=== PATIENT | male | born 1965 | race Caucasian/White ===

== ENCOUNTER 2017-06-14 15:31 | Outpatient (CLI) | payer OTHER ==
[~2017-06-14 15:31] MED LIST: ALLO300T8 PO; AMLO2.5T2 PO; APIX5TAB3 PO; ASPI81TA52 PO; DIO160T PO; FENO145T38 PO; TRIA1TAB5 PO
[2017-06-14] MEDS ORDERED: iohexol 300mg/ml 100ml inj. ONE (15:46)
[2017-06-14] MEDS ORDERED: iohexol 350MG/ML 100ml bottle IV ONE (16:06)
== END 2017-06-14 23:59 | disposition home or self-care (01) ==
LOC: 64 CT 15:31
PROVIDERS: ATTEND Internal Medicine Hematology & Oncology
DX: I37.8 Other nonrheumatic pulmonary valve disorders (principal); I26.99 Other pulmonary embolism without acute cor pulmonale; I10 Essential (primary) hypertension
CPT/HCPCS: 71275; Q9967

== ENCOUNTER 2017-12-05 14:15 | Outpatient (CLI) | payer OTHER ==
[2017-12-05 15:20] LABS: ALANINE AMINOTRANSFERASE 39 U/L (12-78); ALBUMIN 3.9 G/DL (3.4-5.0); ALKALINE PHOSPHATASE 57 IU/L (46-116); ANION GAP 11 (8-16); ASPARTATE AMINO TRANSFERASE 25 U/L (10-37); BILIRUBIN,TOTAL 0.6 MG/DL (0.1-1.0); BLOOD UREA NITROGEN 20 MG/DL (7-18); BUN/CREATININE RATIO 18.3 (5.4-32.0); CALCIUM 9.2 MG/DL (8.5-10.1); CHLORIDE 101 MMOL/L (99-107); CHOL/HDL RATIO 5.7 (0.00-4.99); CHOLESTEROL 194 MG/DL (0-200); CREATININE 1.09 MG/DL (0.60-1.10); GLUCOSE 103 MG/DL (70-104); HDL CHOLESTEROL 34 MG/DL (35-60); LDL CHOLESTEROL 134 MG/DL (50-100); POTASSIUM 3.4 MMOL/L (3.5-5.1); SODIUM 140 MMOL/L (135-145); TOTAL CARBON DIOXIDE 28.1 MMOL/L (24-32); TOTAL PROTEIN 7.8 G/DL (6.4-8.2); TRIGLYCERIDES 220 MG/DL (20-135); eGFR 71 ML/MIN
== END 2017-12-05 23:59 | disposition home or self-care (01) ==
LOC: LAB 14:15
DX: Z12.5 Encounter for screening for malignant neoplasm of prostate (principal); E78.5 Hyperlipidemia, unspecified; I10 Essential (primary) hypertension; Z87.891 Personal history of nicotine dependence
CPT/HCPCS: 36415; 80053; 80061; 84153

== ENCOUNTER 2018-03-13 09:13 | Outpatient (CLI) | payer OTHER ==
[2018-03-13 10:07] LABS: ALANINE AMINOTRANSFERASE 34 U/L (12-78); ALBUMIN 3.6 G/DL (3.4-5.0); ALKALINE PHOSPHATASE 58 IU/L (46-116); ANION GAP 8 (8-16); ASPARTATE AMINO TRANSFERASE 20 U/L (10-37); BILIRUBIN,TOTAL 0.5 MG/DL (0.1-1.0); BLOOD UREA NITROGEN 18 MG/DL (7-18); BUN/CREATININE RATIO 18.2 (5.4-32.0); CALCIUM 9.2 MG/DL (8.5-10.1); CHLORIDE 102 MMOL/L (99-107); CHOL/HDL RATIO 5.2 (0.00-4.99); CHOLESTEROL 192 MG/DL (0-200); CREATININE 0.99 MG/DL (0.60-1.10); GLUCOSE 111 MG/DL (70-104); HDL CHOLESTEROL 37 MG/DL (35-60); LDL CHOLESTEROL 135 MG/DL (50-100); POTASSIUM 3.6 MMOL/L (3.5-5.1); SODIUM 140 MMOL/L (135-145); TOTAL CARBON DIOXIDE 30.1 MMOL/L (24-32); TOTAL PROTEIN 7.3 G/DL (6.4-8.2); TRIGLYCERIDES 205 MG/DL (20-135); eGFR 79 ML/MIN
== END 2018-03-13 23:59 | disposition home or self-care (01) ==
LOC: LAB 09:13
PROVIDERS: ATTEND Family Medicine
DX: Z12.5 Encounter for screening for malignant neoplasm of prostate (principal); E78.00 Pure hypercholesterolemia, unspecified; I10 Essential (primary) hypertension; Z87.891 Personal history of nicotine dependence
CPT/HCPCS: 36415; 80053; 80061; 84153

== ENCOUNTER 2018-09-24 12:53 | Outpatient (CLI) | payer OTHER ==
[2018-09-24 14:46] LABS: ALANINE AMINOTRANSFERASE 35 U/L (12-78); ALBUMIN 3.8 G/DL (3.4-5.0); ALBUMIN/GLOBULIN RATIO 1.1 (1.1-1.5); ALKALINE PHOSPHATASE 57 IU/L (46-116); ANION GAP 8 (8-16); ASPARTATE AMINO TRANSFERASE 18 U/L (10-37); BILIRUBIN,TOTAL 0.5 MG/DL (0.1-1.0); BLOOD UREA NITROGEN 17 MG/DL (7-18); BUN/CREATININE RATIO 17.7 (5.4-32.0); CHLORIDE 103 MMOL/L (99-107); CHOLESTEROL 192 MG/DL (0-200); CREATININE 0.96 MG/DL (0.60-1.10); GLUCOSE 101 MG/DL (70-104); HDL CHOLESTEROL 32 MG/DL (35-60); LDL CHOLESTEROL 134 MG/DL (50-100); POTASSIUM 3.5 MMOL/L (3.5-5.1); SODIUM 139 MMOL/L (135-145); TOTAL CARBON DIOXIDE 28.2 MMOL/L (24-32); TOTAL PROTEIN 7.4 G/DL (6.4-8.2); TRIGLYCERIDES 175 MG/DL (20-135); eGFR 82 ML/MIN
[2018-09-24 15:01] LABS: BASOPHILS # (AUTO) 0.1 X10'3 (0-0.2); HEMOGLOBIN 14.2 g/dl (14.0-17.9); MONOCYTES # (AUTO) 0.6 X10'3 (0-0.9); NEUTROPHILS # (AUTO) 8.9 X10'3 (1.8-7.7)
[2018-09-24 15:03] LABS: BASOPHILS % (AUTO) 0.8 % (0-1); EOSINOPHILS # (AUTO) 0.5 X10'3 (0-0.9); EOSINOPHILS % (AUTO) 4.2 % (0-6); HEMATOCRIT 43.8 % (42.0-52.0); LYMPHOCYTES # (AUTO) 2.2 X10'3 (1.1-4.8); LYMPHOCYTES % (AUTO) 17.7 % (21-51); MEAN CORPUSCULAR HEMOGLOBIN 28.9 PG (27.0-31.0); MEAN CORPUSCULAR HGB CONC 32.5 g/dL (33.0-36.5); MEAN PLATELET VOLUME 8.5 FL (7.4-10.4); MONOCYTES % (AUTO) 4.8 % (2-12); NEUTROPHILS % (AUTO) 72.5 % (42-75); RED BLOOD COUNT 4.92 X10'6 (4.70-6.10); RED CELL DISTRIBUTION WIDTH 16.6 % (11.5-14.5); WHITE BLOOD COUNT 12.3 X10'3 (4.5-11.0)
[2018-09-24 15:09] LABS: PLATELET COUNT 299 X10'3 (140-440)
== END 2018-09-24 23:59 | disposition home or self-care (01) ==
LOC: LAB 12:53
PROVIDERS: ATTEND Family Medicine
DX: I10 Essential (primary) hypertension (principal); E78.00 Pure hypercholesterolemia, unspecified; Z87.891 Personal history of nicotine dependence
CPT/HCPCS: 36415; 80053; 80061; 85025

== ENCOUNTER 2019-01-06 13:38 | Outpatient (CLI) | payer OTHER | END 2019-01-06 23:59 | disposition home or self-care (01) | LOC: RAD 13:38 | PROVIDERS: ATTEND Family Medicine | DX: M17.11 Unilateral primary osteoarthritis, right knee (principal) | CPT/HCPCS: 73564 ==

== ENCOUNTER 2019-06-02 09:06 | Outpatient (CLI) | payer OTHER ==
[2019-06-02 10:09] LABS: ALANINE AMINOTRANSFERASE 37 U/L (12-78); ALBUMIN 3.8 G/DL (3.4-5.0); ALBUMIN/GLOBULIN RATIO 1.1 (1.1-1.5); ALKALINE PHOSPHATASE 48 IU/L (46-116); ANION GAP 12 (8-16); ASPARTATE AMINO TRANSFERASE 22 U/L (10-37); BILIRUBIN,TOTAL 0.6 MG/DL (0.1-1.0); BLOOD UREA NITROGEN 17 MG/DL (7-18); BUN/CREATININE RATIO 16.3 (5.4-32.0); CALCIUM 9.1 MG/DL (8.5-10.1); CHLORIDE 103 MMOL/L (99-107); CHOL/HDL RATIO 5.4 (0.00-4.99); CHOLESTEROL 184 MG/DL (0-200); CREATININE 1.04 MG/DL (0.60-1.10); GLUCOSE 120 MG/DL (70-104); HDL CHOLESTEROL 34 MG/DL (35-60); LDL CHOLESTEROL 131 MG/DL (50-100); POTASSIUM 3.7 MMOL/L (3.5-5.1); SODIUM 140 MMOL/L (135-145); TOTAL CARBON DIOXIDE 25.3 MMOL/L (24-32); TOTAL PROTEIN 7.4 G/DL (6.4-8.2); TRIGLYCERIDES 164 MG/DL (20-135); eGFR 74 ML/MIN
== END 2019-06-02 23:59 | disposition home or self-care (01) ==
LOC: LAB 09:06
PROVIDERS: ATTEND Family Medicine
DX: Z12.5 Encounter for screening for malignant neoplasm of prostate (principal); E78.00 Pure hypercholesterolemia, unspecified; I10 Essential (primary) hypertension
CPT/HCPCS: 36415; 80053; 80061; 84153

== ENCOUNTER 2019-08-20 12:56 | Inpatient (IN) | payer OTHER ==
[~2019-08-20] VITALS: Ht 190.5 cm; Wt 186.0 kg
[2019-08-20 13:58] LABS: BASOPHILS # (AUTO) 0.1 X10'3 (0-0.2); BASOPHILS % (AUTO) 0.5 % (0-1); EOSINOPHILS % (AUTO) 0.2 % (0-6); HEMATOCRIT 43.5 % (42.0-52.0); HEMOGLOBIN 14.9 g/dl (14.0-17.9); LYMPHOCYTES # (AUTO) 1.1 X10'3 (1.1-4.8); LYMPHOCYTES % (AUTO) 9.7 % (21-51); MEAN CORPUSCULAR HEMOGLOBIN 30.3 PG (27.0-31.0); MEAN CORPUSCULAR HGB CONC 34.2 g/dL (33.0-36.5); MEAN CORPUSCULAR VOLUME 88.7 FL (78-98); MEAN PLATELET VOLUME 8.5 FL (7.4-10.4); MONOCYTES # (AUTO) 1.1 X10'3 (0-0.9); NEUTROPHILS # (AUTO) 8.8 X10'3 (1.8-7.7); NEUTROPHILS % (AUTO) 79.6 % (42-75); PLATELET COUNT 288 X10'3 (140-440); RED BLOOD COUNT 4.91 X10'6 (4.70-6.10); RED CELL DISTRIBUTION WIDTH 15.8 % (11.5-14.5)
[2019-08-20] MEDS ORDERED: albuterol 2.5 MG/3 ML nebule NEB ONE (14:10)
[2019-08-20 14:12] LABS: ALANINE AMINOTRANSFERASE 29 U/L (12-78); ALBUMIN 3.8 G/DL (3.4-5.0); ALKALINE PHOSPHATASE 39 IU/L (46-116); ANION GAP 16 (8-16); ASPARTATE AMINO TRANSFERASE 31 U/L (10-37); BILIRUBIN,TOTAL 0.8 MG/DL (0.1-1.0); BLOOD UREA NITROGEN 36 MG/DL (7-18); CALCIUM 9.2 MG/DL (8.5-10.1); CHLORIDE 103 MMOL/L (99-107); CREATININE 2.25 MG/DL (0.60-1.10); GLUCOSE 157 MG/DL (70-104); POTASSIUM 3.6 MMOL/L (3.5-5.1); SODIUM 141 MMOL/L (135-145); TOTAL CARBON DIOXIDE 22.3 MMOL/L (24-32); TOTAL PROTEIN 7.8 G/DL (6.4-8.2); eGFR 31 ML/MIN
[2019-08-20] MEDS ORDERED: normal saline 1000ML IV soln IVB ONE (14:15)
[2019-08-20] MEDS ORDERED: heparin 25,000 UNIT/250ml bag 250 ML IV SCH (15:00)
[2019-08-20] MEDS ORDERED: heparin 10,000 units/1 ML INJ IV ONE (15:00)
[2019-08-20] MEDS ORDERED: OLME40TA13 PO (15:41)
[2019-08-20] MEDS ORDERED: FLUT16SP11 BOTHNARES (15:41)
[2019-08-20 16:08] LABS: D-DIMER 2.71 MG/L FEU (0-0.50)
[2019-08-20] MEDS ORDERED: potassium Cl 20 mEq SR tablet PO PRN (16:55)
[2019-08-20] MEDS ORDERED: morphine 2 MG/ML inj. syringe IV PRN (16:55)
[2019-08-20] MEDS ORDERED: acetaminophen 325mg tablet PO PRN ×2 (16:55)
[2019-08-20] MEDS ORDERED: ondansetron/PF 4mg/2ml inj IV PRN (16:55)
[2019-08-20] MEDS ORDERED: magnesium 4gm in 100ml NS 100 ML IV PRN (16:55)
[2019-08-20] MEDS ORDERED: magnesium 2GM in 50ml NS 50 ML IV PRN (16:55)
[2019-08-20] MEDS ORDERED: HYDROcodone/acetaminophen 5mg/325mg tablet PO PRN (16:55)
[2019-08-20] MEDS ORDERED: potassium CL 10mEq/100ml bag 100 ML IV PRN ×2 (16:55)
[2019-08-20] MEDS ORDERED: magnesium Cl slow-release 64mg tablet PO PRN (16:55)
[2019-08-20 19:00] VITALS: BP 142/95
--- NOTE | 2019-08-20 19:08 | NUR ---
Patient on the floor from ER. SOB, on 5 liter O2 NC. Not complaining of any pain at this time.
[2019-08-20] MEDS: K and/or MAG REPLACEMENT MC SCH (20:00)
[2019-08-20] MEDS ORDERED: CefTRIAXone 2gm/D5W 50ml 50 ML IV ONE (20:20)
[2019-08-20] MEDS: normal saline 1000ml 1,000 ML IV SCH (21:14)
[2019-08-20] MEDS: docusate sod 100mg capsule PO SCH (21:14)
[2019-08-20 22:00] VITALS: BP 133/87
--- NOTE | 2019-08-20 22:16 | NUR ---
Patient's troponin was 1.02. Dr. Saleem in our unit at the moment. He acknowledged the troponin level being 1.02. No orders were given at this time.
[2019-08-20] MEDS: heparin 10,000 units/1 ML INJ IV PRN (22:29)
[2019-08-20] MEDS: heparin 25,000 UNIT/250ml bag 250 ML IV SCH (22:37)
[2019-08-20 23:20] VITALS: BP_SYST 133; BP_SYST 137; BP_SYST 148; BP_DIAS 87; BP_DIAS 90; BP_DIAS 98
[2019-08-21] VITALS (7 sets, daily range): BP systolic 100–134; BP diastolic 56–89
[2019-08-21 02:34] LABS: CLARITY,URINE CLEAR (Clear); COLOR,URINE YELLOW (Yellow); GLUCOSE, URINE NEGATIVE (Neg); KETONES,URINE NEGATIVE (Neg); LEUKOCYTE ESTERASE ,URINE NEGATIVE (Neg); NITRITES, URINE NEGATIVE (Neg); OCCULT BLOOD,URINE LARGE (Neg); PH,URINE 5.5 (4.8-8.0); PROTEIN,URINE TRACE mg/dl (Neg)
[2019-08-21 02:40] LABS: UA COLLECTION TYPE VOIDED
[2019-08-21 02:43] LABS: WBC,URINE 0-4 /HPF (0-4)
[2019-08-21 02:44] LABS: BACTERIA,URINE NONE SEEN /HPF (Neg); SQUAMOUS EPITHELIAL CELL,UR MODERATE /LPF (FEW)
[2019-08-21 02:47] LABS: URINE AMPHETAMINE SCREEN NEGATIVE (Neg); URINE BARBITUATE SCREEN NEGATIVE (Neg); URINE BENZODIAZEPINES SCREEN NEGATIVE (Neg); URINE CANNABINOID SCREEN NEGATIVE (Neg); URINE COCAINE SCREEN NEGATIVE (Neg); URINE METHADONE SCREEN NEGATIVE (Neg); URINE OPIATE SCREEN NEGATIVE (Neg); URINE PHENCYCLIDINE SCREEN NEGATIVE (Neg)
[2019-08-21] MEDS: normal saline 1000ml 1,000 ML IV SCH ×3 (02:55→20:25)
[2019-08-21 03:24] LABS: BASOPHILS # (AUTO) 0.1 X10'3 (0-0.2); BASOPHILS % (AUTO) 0.7 % (0-1); EOSINOPHILS # (AUTO) 0.1 X10'3 (0-0.9); EOSINOPHILS % (AUTO) 0.6 % (0-6); HEMATOCRIT 39.8 % (42.0-52.0); HEMOGLOBIN 13.8 g/dl (14.0-17.9); LYMPHOCYTES # (AUTO) 1.6 X10'3 (1.1-4.8); LYMPHOCYTES % (AUTO) 15.4 % (21-51); MEAN CORPUSCULAR HEMOGLOBIN 30.8 PG (27.0-31.0); MEAN CORPUSCULAR HGB CONC 34.7 g/dL (33.0-36.5); MEAN CORPUSCULAR VOLUME 88.8 FL (78-98); MEAN PLATELET VOLUME 8.4 FL (7.4-10.4); MONOCYTES # (AUTO) 0.9 X10'3 (0-0.9); MONOCYTES % (AUTO) 8.3 % (2-12); NEUTROPHILS # (AUTO) 7.7 X10'3 (1.8-7.7); PLATELET COUNT 268 X10'3 (140-440); RED BLOOD COUNT 4.48 X10'6 (4.70-6.10); WHITE BLOOD COUNT 10.2 X10'3 (4.5-11.0)
[2019-08-21 03:37] LABS: ALANINE AMINOTRANSFERASE 29 U/L (12-78); ALBUMIN 3.3 G/DL (3.4-5.0); ALBUMIN/GLOBULIN RATIO 0.9 (1.1-1.5); ALKALINE PHOSPHATASE 34 IU/L (46-116); ANION GAP 15 (8-16); ASPARTATE AMINO TRANSFERASE 28 U/L (10-37); BILIRUBIN,TOTAL 0.7 MG/DL (0.1-1.0); BLOOD UREA NITROGEN 41 MG/DL (7-18); BUN/CREATININE RATIO 22.2 (5.4-32.0); CALCIUM 8.3 MG/DL (8.5-10.1); CHLORIDE 104 MMOL/L (99-107); CREATININE 1.85 MG/DL (0.60-1.10); GLUCOSE 158 MG/DL (70-104); POTASSIUM 3.3 MMOL/L (3.5-5.1); SODIUM 140 MMOL/L (135-145); TOTAL CARBON DIOXIDE 21.3 MMOL/L (24-32); TOTAL PROTEIN 6.9 G/DL (6.4-8.2); eGFR 38 ML/MIN
[2019-08-21 03:39] LABS: CHOL/HDL RATIO 5.6 (0.00-4.99); CHOLESTEROL 135 MG/DL (0-200); HDL CHOLESTEROL 24 MG/DL (35-60); LDL CHOLESTEROL 91 MG/DL (50-100); MAGNESIUM 1.9 MG/DL (1.5-2.4); TRIGLYCERIDES 168 MG/DL (20-135)
[2019-08-21] MEDS: heparin 25,000 UNIT/250ml bag 250 ML IV SCH ×2 (04:11→06:58)
--- NOTE | 2019-08-21 04:25 | NUR ---
The 12hr troponin is 0.72. Its trending down. Charge Nurse-Courtaney is aware of the result. No need to call the Dr. with troponin trending down.
--- NOTE | 2019-08-21 05:14 | NUR ---
The patient has a DVT PTT due at 0430. He is a hard stick. Waiting for the lab to draw the lab. Charge Nurse-Rhiannon is aware of the issue
--- NOTE | 2019-08-21 06:00 | NUR ---
I have received report from Gary ALVAREZ and had the opportunity to ask questions and assume patient care.
--- NOTE | 2019-08-21 06:21 | NUR ---
Problems reprioritized. Patient report given [place], questions answered & plan of care reviewed with .
[2019-08-21] MEDS: heparin 10,000 units/1 ML INJ IV PRN (06:58)
[2019-08-21] MEDS: losartan 50mg tablet PO SCH (07:05)
[2019-08-21] MEDS: fenofibrate 145mg tablet PO SCH (07:05)
[2019-08-21] MEDS: allopurinol 300 MG tablet PO SCH (07:05)
[2019-08-21] MEDS: amLODIPine 2.5mg tablet PO SCH (07:05)
[2019-08-21] MEDS: docusate sod 100mg capsule PO SCH ×2 (07:40→20:00)
[2019-08-21] MEDS: fluticasone nasal spray 16GM bottle NS SCH (07:40)
[2019-08-21] MEDS: potassium Cl 20 mEq SR tablet PO PRN ×3 (07:44→20:19)
[2019-08-21] MEDS: K and/or MAG REPLACEMENT MC SCH ×2 (08:00→20:00)
[2019-08-21] MEDS: furosemide 40mg/4ml inj IV SCH ×2 (09:51→20:19)
[2019-08-21] MEDS: apixaban 5mg tablet PO SCH ×2 (09:51→20:19)
--- NOTE | 2019-08-21 18:00 | NUR ---
Patient in room MED 315. I have received report from [place], and had the opportunity to ask questions and assume patient care.
--- NOTE | 2019-08-21 18:10 | NUR ---
Problems reprioritized. Patient report given, questions answered & plan of care reviewed with Gary ALVAREZ.
[2019-08-22] VITALS (7 sets, daily range): BP systolic 107–187; BP diastolic 60–98
[2019-08-22 06:24] LABS: BASOPHILS % (AUTO) 0.5 % (0-1); EOSINOPHILS # (AUTO) 0.1 X10'3 (0-0.9); EOSINOPHILS % (AUTO) 1.6 % (0-6); HEMATOCRIT 41.5 % (42.0-52.0); HEMOGLOBIN 14.3 g/dl (14.0-17.9); LYMPHOCYTES # (AUTO) 2.7 X10'3 (1.1-4.8); LYMPHOCYTES % (AUTO) 30.6 % (21-51); MEAN CORPUSCULAR HEMOGLOBIN 30.7 PG (27.0-31.0); MEAN CORPUSCULAR HGB CONC 34.4 g/dL (33.0-36.5); MEAN CORPUSCULAR VOLUME 89.2 FL (78-98); MEAN PLATELET VOLUME 8.7 FL (7.4-10.4); MONOCYTES # (AUTO) 0.8 X10'3 (0-0.9); MONOCYTES % (AUTO) 9.5 % (2-12); NEUTROPHILS # (AUTO) 5.1 X10'3 (1.8-7.7); NEUTROPHILS % (AUTO) 57.8 % (42-75); PLATELET COUNT 307 X10'3 (140-440); RED BLOOD COUNT 4.65 X10'6 (4.70-6.10); RED CELL DISTRIBUTION WIDTH 15.8 % (11.5-14.5); WHITE BLOOD COUNT 8.8 X10'3 (4.5-11.0)
--- NOTE | 2019-08-22 06:25 | NUR ---
Problems reprioritized. Patient report given to Kurtis, questions answered & plan of care reviewed with .
[2019-08-22 06:28] LABS: ALANINE AMINOTRANSFERASE 39 U/L (12-78); ALBUMIN 3.6 G/DL (3.4-5.0); ALBUMIN/GLOBULIN RATIO 0.9 (1.1-1.5); ALKALINE PHOSPHATASE 43 IU/L (46-116); ANION GAP 12 (8-16); ASPARTATE AMINO TRANSFERASE 28 U/L (10-37); BILIRUBIN,TOTAL 0.6 MG/DL (0.1-1.0); BLOOD UREA NITROGEN 47 MG/DL (7-18); BUN/CREATININE RATIO 27.5 (5.4-32.0); CALCIUM 8.6 MG/DL (8.5-10.1); CHLORIDE 102 MMOL/L (99-107); CREATININE 1.71 MG/DL (0.60-1.10); GLUCOSE 122 MG/DL (70-104); POTASSIUM 3.4 MMOL/L (3.5-5.1); SODIUM 141 MMOL/L (135-145); TOTAL CARBON DIOXIDE 27.1 MMOL/L (24-32); TOTAL PROTEIN 7.6 G/DL (6.4-8.2); eGFR 42 ML/MIN
--- NOTE | 2019-08-22 06:41 | NUR ---
Patient in room MED 317. I have received report from Gary ALVAREZ and had the opportunity to ask questions and assume patient care.
[2019-08-22] MEDS: docusate sod 100mg capsule PO SCH ×2 (08:00→20:00)
[2019-08-22] MEDS: amLODIPine 2.5mg tablet PO SCH (08:31)
[2019-08-22] MEDS: apixaban 5mg tablet PO SCH ×2 (08:31→21:27)
[2019-08-22] MEDS: fenofibrate 145mg tablet PO SCH (08:31)
[2019-08-22] MEDS: losartan 50mg tablet PO SCH (08:31)
[2019-08-22] MEDS: potassium Cl 20 mEq SR tablet PO PRN ×3 (08:32→17:31)
[2019-08-22] MEDS: allopurinol 300 MG tablet PO SCH (08:32)
[2019-08-22] MEDS: fluticasone nasal spray 16GM bottle NS SCH (08:32)
[2019-08-22] MEDS: K and/or MAG REPLACEMENT MC SCH ×2 (08:34→20:00)
[2019-08-22] MEDS: furosemide 40mg/4ml inj IV SCH ×2 (08:34→21:44)
[2019-08-22] MEDS: normal saline 1000ml 1,000 ML IV SCH (08:55)
[2019-08-22] MEDS ORDERED: ASPI-1265 PO (10:24)
--- NOTE | 2019-08-22 18:20 | NUR ---
Problems reprioritized. Patient report given, questions answered & plan of care reviewed with Angelica ALVAREZ.
--- NOTE | 2019-08-22 18:35 | NUR ---
received report from KIM Johns
[2019-08-23 02:00] VITALS: BP 138/81
[2019-08-23 05:47] LABS: BASOPHILS # (AUTO) 0.1 X10'3 (0-0.2); BASOPHILS % (AUTO) 0.9 % (0-1); EOSINOPHILS # (AUTO) 0.2 X10'3 (0-0.9); EOSINOPHILS % (AUTO) 3.4 % (0-6); HEMATOCRIT 41.2 % (42.0-52.0); HEMOGLOBIN 13.7 g/dl (14.0-17.9); LYMPHOCYTES % (AUTO) 29.5 % (21-51); MEAN CORPUSCULAR HEMOGLOBIN 29.8 PG (27.0-31.0); MEAN CORPUSCULAR HGB CONC 33.4 g/dL (33.0-36.5); MEAN CORPUSCULAR VOLUME 89.4 FL (78-98); MEAN PLATELET VOLUME 8.8 FL (7.4-10.4); MONOCYTES # (AUTO) 0.6 X10'3 (0-0.9); MONOCYTES % (AUTO) 8.6 % (2-12); NEUTROPHILS # (AUTO) 3.9 X10'3 (1.8-7.7); NEUTROPHILS % (AUTO) 57.6 % (42-75); PLATELET COUNT 285 X10'3 (140-440); RED BLOOD COUNT 4.61 X10'6 (4.70-6.10); RED CELL DISTRIBUTION WIDTH 15.7 % (11.5-14.5); WHITE BLOOD COUNT 6.9 X10'3 (4.5-11.0)
[2019-08-23 06:00] VITALS: BP 120/63
[2019-08-23 06:13] LABS: ALANINE AMINOTRANSFERASE 41 U/L (12-78); ALBUMIN 3.5 G/DL (3.4-5.0); ALBUMIN/GLOBULIN RATIO 0.8 (1.1-1.5); ALKALINE PHOSPHATASE 58 IU/L (46-116); ANION GAP 10 (8-16); ASPARTATE AMINO TRANSFERASE 33 U/L (10-37); BILIRUBIN,TOTAL 0.6 MG/DL (0.1-1.0); BLOOD UREA NITROGEN 45 MG/DL (7-18); BUN/CREATININE RATIO 29.6 (5.4-32.0); CHLORIDE 103 MMOL/L (99-107); CREATININE 1.52 MG/DL (0.60-1.10); GLUCOSE 117 MG/DL (70-104); POTASSIUM 3.4 MMOL/L (3.5-5.1); SODIUM 142 MMOL/L (135-145); TOTAL CARBON DIOXIDE 29.1 MMOL/L (24-32); TOTAL PROTEIN 7.9 G/DL (6.4-8.2); eGFR 48 ML/MIN
--- NOTE | 2019-08-23 06:30 | NUR ---
Patient in room MED 317. I have received report from Angelica ALVAREZ and had the opportunity to ask questions and assume patient care.
--- NOTE | 2019-08-23 06:30 | NUR ---
Patient in room MED 317. I have received report from Angelica ALVAREZ and had the opportunity to ask questions and assume patient care.
--- NOTE | 2019-08-23 06:46 | NUR ---
Patient in room MED 317. I have received report from Angelica ALVAREZ and had the opportunity to ask questions and assume patient care.
--- NOTE | 2019-08-23 07:15 | NUR ---
gave report to KIM Marvin
[2019-08-23] MEDS: furosemide 40mg/4ml inj IV SCH (07:34)
[2019-08-23] MEDS: allopurinol 300 MG tablet PO SCH (07:35)
[2019-08-23] MEDS: amLODIPine 2.5mg tablet PO SCH (07:38)
[2019-08-23] MEDS: potassium Cl 20 mEq SR tablet PO PRN (07:38)
[2019-08-23] MEDS: losartan 50mg tablet PO SCH (07:38)
[2019-08-23] MEDS: fenofibrate 145mg tablet PO SCH (07:38)
[2019-08-23] MEDS: apixaban 5mg tablet PO SCH (07:38)
[2019-08-23] MEDS: fluticasone nasal spray 16GM bottle NS SCH (07:43)
[2019-08-23] MEDS: K and/or MAG REPLACEMENT MC SCH (07:51)
[2019-08-23] MEDS: docusate sod 100mg capsule PO SCH (07:52)
[2019-08-23 08:00] VITALS: BP_SYST 123; BP_SYST 142; BP_SYST 154; BP_DIAS 76; BP_DIAS 88; BP_DIAS 91
[2019-08-23 11:00] VITALS: BP 123/76
[2019-08-23] MEDS ORDERED: APIX5TAB3 PO (13:31)
[2019-08-23] MEDS ORDERED: FURO40TA4 PO (13:31)
--- NOTE | 2019-08-23 14:20 | NUR ---
Pt has remained stable. Discharge orders given by . IV discontinued and catheter intact. IV site has no s/s of complications. All instructions given and pt stated understanding. All belongings accounted for. Pt taken by wheelchair to private vehicle.
== END 2019-08-23 14:33 | disposition home or self-care (01) | DRG 175 ==
LOC: ER 12:57 → ED HOLD 16:55 → MED 3N 19:00
PROVIDERS: ADMIT Internal Medicine; ATTEND Internal Medicine
DX: I26.09 Other pulmonary embolism with acute cor pulmonale (principal); I13.0 Hypertensive heart and chronic kidney disease with heart failure and stage 1 through stage 4 chronic kidney disease, or unspecified chronic kidney disease; Z68.43 Body mass index [BMI] 50.0-59.9, adult; N17.9 Acute kidney failure, unspecified; E66.01 Morbid (severe) obesity due to excess calories; E78.00 Pure hypercholesterolemia, unspecified; E78.5 Hyperlipidemia, unspecified; I50.813 Acute on chronic right heart failure; G47.33 Obstructive sleep apnea (adult) (pediatric); M10.9 Gout, unspecified; N18.3 Chronic kidney disease, stage 3 (moderate); W18.39XA Other fall on same level, initial encounter; Y93.89 Activity, other specified; Y92.238 Other place in hospital as the place of occurrence of the external cause; Y99.8 Other external cause status; Z79.899 Other long term (current) drug therapy; Z86.711 Personal history of pulmonary embolism; Z86.718 Personal history of other venous thrombosis and embolism; Z87.891 Personal history of nicotine dependence
CPT/HCPCS: 36415; 71045; 80053; 80061; 80305; 81001; 83605; 83735; 83880; 84484; 85025; 85379; 85610; 85730; 87040; 87081; 87502; 87503; 92508; 92616; 93005; 93306; 93880; 93970; 94640; 94660; 94760; 96374; 97110; 97162; 99285; G0378; J0696; J1644; J1940; J7030

== ENCOUNTER 2019-10-14 13:30 | Outpatient (CLI) | payer OTHER ==
[~2019-10-14] VITALS: Ht 188 cm; Wt 192.8 kg
[~2019-10-14 13:30] MED LIST changes: +ASPI-1265 PO; -ASPI81TA52 PO; -DIO160T PO; +FLUT16SP11 BOTHNARES; +OLME40TA13 PO; -TRIA1TAB5 PO
[2019-10-14] MEDS ORDERED: iohexol 350MG/ML 100ml bottle IV ONE (13:36)
[2019-10-15] VITALS (7 sets, daily range): BP systolic 148–158; BP diastolic 70–79
[2019-10-15] MEDS ORDERED: metoprolol tartrate 1mg/ml inj IV PRN (08:50)
[2019-10-15] MEDS ORDERED: atropine 0.1mg/ml 10ml syringe IV PRN (08:50)
[2019-10-15] MEDS ORDERED: nitroGLYCERIN 0.4mg SUBLingual tab SL PRN (08:50)
[2019-10-15] MEDS ORDERED: aminophylline 250mg/10ml inj. IV PRN (08:50)
[2019-10-15] MEDS ORDERED: regadenoson 0.4mg/5ml syringe IV ONE (08:50)
== END 2019-10-14 23:59 | disposition home or self-care (01) ==
LOC: 64 CT 13:30
PROVIDERS: ATTEND Internal Medicine Cardiovascular Disease
DX: I10 Essential (primary) hypertension (principal); I26.99 Other pulmonary embolism without acute cor pulmonale; I25.10 Atherosclerotic heart disease of native coronary artery without angina pectoris; M47.814 Spondylosis without myelopathy or radiculopathy, thoracic region
CPT/HCPCS: 71275; 78451; A9500; Q9967; J2785

== ENCOUNTER 2020-01-28 11:07 | Outpatient (CLI) | payer BC ==
[2020-01-28 12:27] LABS: ALANINE AMINOTRANSFERASE 38 U/L (12-78); ALBUMIN 3.6 G/DL (3.4-5.0); ALKALINE PHOSPHATASE 52 IU/L (46-116); ANION GAP 8 (8-16); ASPARTATE AMINO TRANSFERASE 24 U/L (10-37); BILIRUBIN,TOTAL 0.6 MG/DL (0.1-1.0); BLOOD UREA NITROGEN 13 MG/DL (7-18); BUN/CREATININE RATIO 14.8 (5.4-32.0); CALCIUM 8.6 MG/DL (8.5-10.1); CHLORIDE 104 MMOL/L (99-107); CHOL/HDL RATIO 4.7 (0.00-4.99); CHOLESTEROL 165 MG/DL (0-200); CREATININE 0.88 MG/DL (0.60-1.10); GLUCOSE 112 MG/DL (70-104); HDL CHOLESTEROL 35 MG/DL (35-60); LDL CHOLESTEROL 116 MG/DL (50-100); POTASSIUM 3.2 MMOL/L (3.5-5.1); SODIUM 143 MMOL/L (135-145); TOTAL PROTEIN 7.1 G/DL (6.4-8.2); TRIGLYCERIDES 129 MG/DL (20-135); eGFR 90 ML/MIN
== END 2020-01-28 23:59 | disposition home or self-care (01) ==
LOC: LAB 11:07
PROVIDERS: ATTEND Family Medicine
DX: Z12.5 Encounter for screening for malignant neoplasm of prostate (principal); E78.00 Pure hypercholesterolemia, unspecified
CPT/HCPCS: 36415; 80053; 80061; 84153

== ENCOUNTER → 2020-08-05 | Outpatient (CLI) | payer BC ==
[2020-08-05 10:00] LABS: ALANINE AMINOTRANSFERASE 40 U/L (12-78); ALBUMIN 3.6 G/DL (3.4-5.0); ALKALINE PHOSPHATASE 65 IU/L (46-116); ANION GAP 8 (8-16); ASPARTATE AMINO TRANSFERASE 39 U/L (10-37); BILIRUBIN,TOTAL 0.5 MG/DL (0.1-1.0); BLOOD UREA NITROGEN 10 MG/DL (7-18); BUN/CREATININE RATIO 11.5 (5.4-32.0); CALCIUM 8.8 MG/DL (8.5-10.1); CHLORIDE 104 MMOL/L (99-107); CHOL/HDL RATIO 5.1 (0.00-4.99); CHOLESTEROL 178 MG/DL (0-200); CREATININE 0.87 MG/DL (0.60-1.10); GLUCOSE 122 MG/DL (70-104); HDL CHOLESTEROL 35 MG/DL (35-60); LDL CHOLESTEROL 125 MG/DL (50-100); POTASSIUM 3.6 MMOL/L (3.5-5.1); SODIUM 143 MMOL/L (135-145); TOTAL CARBON DIOXIDE 31.5 MMOL/L (24-32); TOTAL PROTEIN 7.3 G/DL (6.4-8.2); TRIGLYCERIDES 120 MG/DL (20-135); eGFR > 90 ML/MIN
== END | disposition home or self-care (01) ==
LOC: LAB 09:10
PROVIDERS: ATTEND Family Medicine
DX: E78.00 Pure hypercholesterolemia, unspecified (principal)
CPT/HCPCS: 36415; 80053; 80061

== ENCOUNTER 2020-08-30 13:38 | Outpatient (CLI) | payer BC | END 2020-08-30 23:59 | disposition home or self-care (01) | LOC: CARD DIAG 13:38 | PROVIDERS: ATTEND Internal Medicine Cardiovascular Disease | DX: I50.22 Chronic systolic (congestive) heart failure (principal) | CPT/HCPCS: 93306 ==

== ENCOUNTER 2020-10-03 12:51 | Emergency (ER) | payer BC ==
[~2020-10-03] VITALS: Ht 190.5 cm; Wt 186.4 kg
[2020-10-03 13:30] VITALS: BP 179/84
[2020-10-03] MEDS ORDERED: HYDR-3686 PO (14:51)
== END 2020-10-03 15:42 | disposition home or self-care (01) ==
LOC: ER 12:52
DX: L23.9 Allergic contact dermatitis, unspecified cause (principal); E78.00 Pure hypercholesterolemia, unspecified; I10 Essential (primary) hypertension; M10.9 Gout, unspecified; Z79.82 Long term (current) use of aspirin; Z79.899 Other long term (current) drug therapy
CPT/HCPCS: 99283

== ENCOUNTER 2020-11-26 12:23 | Emergency (ER) | payer BC ==
[~2020-11-26] VITALS: Ht 188 cm; Wt 193.2 kg
[2020-11-26 13:10] LABS: BASOPHILS # (AUTO) 0.1 X10'3 (0-0.2); EOSINOPHILS # (AUTO) 0.3 X10'3 (0-0.9); EOSINOPHILS % (AUTO) 3.8 % (0-6); HEMATOCRIT 41.7 % (42.0-52.0); HEMOGLOBIN 14.2 g/dl (14.0-17.9); LYMPHOCYTES # (AUTO) 1.7 X10'3 (1.1-4.8); LYMPHOCYTES % (AUTO) 18.9 % (21-51); MEAN CORPUSCULAR HEMOGLOBIN 30.4 PG (27.0-31.0); MEAN CORPUSCULAR VOLUME 89.5 FL (78-98); MEAN PLATELET VOLUME 8.6 FL (7.4-10.4); MONOCYTES # (AUTO) 0.5 X10'3 (0-0.9); MONOCYTES % (AUTO) 5.1 % (2-12); NEUTROPHILS # (AUTO) 6.6 X10'3 (1.8-7.7); NEUTROPHILS % (AUTO) 71.2 % (42-75); PLATELET COUNT 286 X10'3 (140-440); RED BLOOD COUNT 4.66 X10'6 (4.70-6.10); RED CELL DISTRIBUTION WIDTH 16.2 % (11.5-14.5); WHITE BLOOD COUNT 9.2 X10'3 (4.5-11.0)
[2020-11-26] MEDS ORDERED: diltiazem 5mg/ml 5ml inj. IV ONE (13:15)
[2020-11-26 13:28] LABS: ALANINE AMINOTRANSFERASE 46 U/L (12-78); ALBUMIN 3.7 G/DL (3.4-5.0); ALKALINE PHOSPHATASE 87 IU/L (46-116); ANION GAP 13 (8-16); BILIRUBIN,TOTAL 0.5 MG/DL (0.1-1.0); BLOOD UREA NITROGEN 13 MG/DL (7-18); CALCIUM 8.2 MG/DL (8.5-10.1); CHLORIDE 104 MMOL/L (99-107); CREATININE 0.93 MG/DL (0.60-1.10); GLUCOSE 141 MG/DL (70-104); SODIUM 144 MMOL/L (135-145); TOTAL CARBON DIOXIDE 27.1 MMOL/L (24-32); TOTAL PROTEIN 7.4 G/DL (6.4-8.2); eGFR 84 ML/MIN
[2020-11-26 13:39] LABS: POTASSIUM 3.5 MMOL/L (3.5-5.1)
[2020-11-26 13:40] LABS: ASPARTATE AMINO TRANSFERASE 40 U/L (10-37)
[2020-11-26] MEDS ORDERED: FLEC50TA28 PO (13:51)
[2020-11-26] MEDS ORDERED: CARV12.549 PO (13:51)
[2020-11-26 14:38] VITALS: BP 152/87
== END 2020-11-26 14:40 | disposition home or self-care (01) ==
LOC: ER 12:24
DX: I48.91 Unspecified atrial fibrillation (principal); R42 Dizziness and giddiness; R06.02 Shortness of breath; R00.2 Palpitations; E78.00 Pure hypercholesterolemia, unspecified; I10 Essential (primary) hypertension; M10.9 Gout, unspecified; Z86.711 Personal history of pulmonary embolism; Z79.82 Long term (current) use of aspirin; Z79.899 Other long term (current) drug therapy
CPT/HCPCS: 36415; 71045; 80053; 83880; 84443; 84484; 85025; 93005; 96374; 99285; J3490

== ENCOUNTER 2020-12-08 16:14 | Emergency (ER) | payer BC ==
[~2020-12-08] VITALS: Ht 190.5 cm; Wt 193.2 kg
[~2020-12-08 16:14] MED LIST changes: +CARV12.549 PO; +FLEC50TA28 PO
[2020-12-08] MEDS ORDERED: diltiazem 5mg/ml 5ml inj. IV ONE (16:55)
[2020-12-08] MEDS ORDERED: metoprolol tartrate 1mg/ml inj IV ONE (17:25)
[2020-12-08 17:35] LABS: BASOPHILS # (AUTO) 0.1 X10'3 (0-0.2); BASOPHILS % (AUTO) 0.8 % (0-1); EOSINOPHILS # (AUTO) 0.4 X10'3 (0-0.9); EOSINOPHILS % (AUTO) 4.6 % (0-6); HEMATOCRIT 40.1 % (42.0-52.0); HEMOGLOBIN 13.3 g/dl (14.0-17.9); LYMPHOCYTES # (AUTO) 1.4 X10'3 (1.1-4.8); MEAN CORPUSCULAR HEMOGLOBIN 29.5 PG (27.0-31.0); MEAN CORPUSCULAR HGB CONC 33.2 g/dL (33.0-36.5); MEAN CORPUSCULAR VOLUME 88.8 FL (78-98); MEAN PLATELET VOLUME 8.4 FL (7.4-10.4); MONOCYTES # (AUTO) 0.5 X10'3 (0-0.9); MONOCYTES % (AUTO) 6.2 % (2-12); NEUTROPHILS # (AUTO) 5.7 X10'3 (1.8-7.7); NEUTROPHILS % (AUTO) 70.4 % (42-75); PLATELET COUNT 264 X10'3 (140-440); RED BLOOD COUNT 4.52 X10'6 (4.70-6.10); RED CELL DISTRIBUTION WIDTH 16.2 % (11.5-14.5); WHITE BLOOD COUNT 8.1 X10'3 (4.5-11.0)
[2020-12-08 18:09] LABS: ANION GAP 10 (8-16); BLOOD UREA NITROGEN 14 MG/DL (7-18); BUN/CREATININE RATIO 15.4 (5.4-32.0); CHLORIDE 104 MMOL/L (99-107); CREATININE 0.91 MG/DL (0.60-1.10); GLUCOSE 125 MG/DL (70-104); SODIUM 146 MMOL/L (135-145); TOTAL CARBON DIOXIDE 31.9 MMOL/L (24-32)
[2020-12-08 18:10] LABS: ALANINE AMINOTRANSFERASE 49 U/L (12-78); ALBUMIN 3.6 G/DL (3.4-5.0); ALKALINE PHOSPHATASE 72 IU/L (46-116); ASPARTATE AMINO TRANSFERASE 31 U/L (10-37); BILIRUBIN,TOTAL 0.5 MG/DL (0.1-1.0); CALCIUM 8.5 MG/DL (8.5-10.1); TOTAL PROTEIN 7.2 G/DL (6.4-8.2); eGFR 86 ML/MIN
[2020-12-08] MEDS ORDERED: CARV-50 PO (18:19)
[2020-12-08] MEDS ORDERED: FLEC100T35 PO (18:19)
[2020-12-08 18:41] VITALS: BP 174/98
== END 2020-12-08 18:43 | disposition home or self-care (01) ==
LOC: EEVIPCON 16:15 → ER 16:15
DX: R00.2 Palpitations (principal); I48.20 Chronic atrial fibrillation, unspecified; E78.00 Pure hypercholesterolemia, unspecified; I10 Essential (primary) hypertension; M10.9 Gout, unspecified; Z86.711 Personal history of pulmonary embolism; Z79.82 Long term (current) use of aspirin; Z79.899 Other long term (current) drug therapy
CPT/HCPCS: 36415; 80053; 84484; 85025; 93005; 96374; 96375; 99284; J3490

== ENCOUNTER 2021-05-11 06:06 | Outpatient (CLI) | payer BC ==
[~2021-05-11 06:06] MED LIST changes: +CARV-50 PO; +FLEC100T35 PO
[2021-05-11 09:19] LABS: ALANINE AMINOTRANSFERASE 33 U/L (12-78); ALBUMIN 3.7 G/DL (3.4-5.0); ALKALINE PHOSPHATASE 55 IU/L (46-116); ANION GAP 10 (8-16); ASPARTATE AMINO TRANSFERASE 14 U/L (10-37); BILIRUBIN,TOTAL 0.5 MG/DL (0.1-1.0); BLOOD UREA NITROGEN 12 MG/DL (7-18); CALCIUM 8.6 MG/DL (8.5-10.1); CHLORIDE 105 MMOL/L (99-107); CHOL/HDL RATIO 4.3 (0.00-4.99); CHOLESTEROL 166 MG/DL (0-200); CREATININE 0.92 MG/DL (0.60-1.10); GLUCOSE 111 MG/DL (70-104); HDL CHOLESTEROL 39 MG/DL (35-60); LDL CHOLESTEROL 110 MG/DL (50-100); POTASSIUM 3.6 MMOL/L (3.5-5.1); SODIUM 144 MMOL/L (135-145); TOTAL CARBON DIOXIDE 29.2 MMOL/L (24-32); TOTAL PROTEIN 7.3 G/DL (6.4-8.2); TRIGLYCERIDES 95 MG/DL (20-135); eGFR 85 ML/MIN
== END 2021-05-11 23:59 | disposition home or self-care (01) ==
LOC: LAB 06:06
PROVIDERS: ATTEND Family Medicine
DX: Z12.5 Encounter for screening for malignant neoplasm of prostate (principal); I10 Essential (primary) hypertension; E78.00 Pure hypercholesterolemia, unspecified
CPT/HCPCS: 36415; 80053; 80061; 84153

== ENCOUNTER 2021-10-17 10:48 | Outpatient (CLI) | payer BC ==
[2021-10-17 11:38] LABS: ALANINE AMINOTRANSFERASE 30 U/L (12-78); ALBUMIN 3.8 G/DL (3.4-5.0); ALBUMIN/GLOBULIN RATIO 1.1 (1.1-1.5); ALKALINE PHOSPHATASE 54 IU/L (46-116); ANION GAP 11 (8-16); ASPARTATE AMINO TRANSFERASE 17 U/L (10-37); BILIRUBIN,TOTAL 0.7 MG/DL (0.1-1.0); BLOOD UREA NITROGEN 15 MG/DL (7-18); BUN/CREATININE RATIO 15.3 (5.4-32.0); CALCIUM 8.4 MG/DL (8.5-10.1); CHLORIDE 105 MMOL/L (99-107); CHOL/HDL RATIO 4.6 (0.00-4.99); CHOLESTEROL 167 MG/DL (0-200); CREATININE 0.98 MG/DL (0.60-1.10); GLUCOSE 121 MG/DL (70-104); HDL CHOLESTEROL 36 MG/DL (35-60); LDL CHOLESTEROL 123 MG/DL (50-100); POTASSIUM 3.7 MMOL/L (3.5-5.1); SODIUM 143 MMOL/L (135-145); TOTAL CARBON DIOXIDE 27.2 MMOL/L (24-32); TOTAL PROTEIN 7.4 G/DL (6.4-8.2); TRIGLYCERIDES 112 MG/DL (20-135); eGFR 79 ML/MIN
== END 2021-10-17 23:59 | disposition home or self-care (01) ==
LOC: LAB 10:48
PROVIDERS: ATTEND Family Medicine
DX: I10 Essential (primary) hypertension (principal); E78.00 Pure hypercholesterolemia, unspecified; M10.9 Gout, unspecified; I26.99 Other pulmonary embolism without acute cor pulmonale; I48.92 Unspecified atrial flutter
CPT/HCPCS: 36415; 80053; 80061; 84153; 84550

== ENCOUNTER 2022-04-17 09:38 | Outpatient (CLI) | payer BC ==
[~2022-04-17 09:38] MED LIST changes: -OLME40TA13 PO; +OLME40TA70 PO
[2022-04-17 10:41] LABS: ALANINE AMINOTRANSFERASE 29 U/L (12-78); ALBUMIN 3.8 G/DL (3.4-5.0); ALBUMIN/GLOBULIN RATIO 0.9 (1.1-1.5); ALKALINE PHOSPHATASE 56 IU/L (46-116); ANION GAP 7 (8-16); ASPARTATE AMINO TRANSFERASE 22 U/L (10-37); BILIRUBIN,TOTAL 0.7 MG/DL (0.1-1.0); BLOOD UREA NITROGEN 13 MG/DL (7-18); BUN/CREATININE RATIO 12.9 (5.4-32.0); CALCIUM 8.9 MG/DL (8.5-10.1); CHLORIDE 103 MMOL/L (99-107); CHOL/HDL RATIO 4.8 (0.00-4.99); CHOLESTEROL 158 MG/DL (0-200); CREATININE 1.01 MG/DL (0.60-1.10); GLUCOSE 113 MG/DL (70-104); HDL CHOLESTEROL 33 MG/DL (35-60); LDL CHOLESTEROL 110 MG/DL (50-100); POTASSIUM 3.4 MMOL/L (3.5-5.1); SODIUM 140 MMOL/L (135-145); TOTAL CARBON DIOXIDE 29.6 MMOL/L (24-32); TRIGLYCERIDES 133 MG/DL (20-135); eGFR 76 ML/MIN
[2022-04-17 10:43] LABS: HEMOGLOBIN A1C 5.6 % (4.5-6.2)
== END 2022-04-17 23:59 | disposition home or self-care (01) ==
LOC: LAB 09:38
PROVIDERS: ATTEND Family Medicine
DX: E78.00 Pure hypercholesterolemia, unspecified (principal); I10 Essential (primary) hypertension
CPT/HCPCS: 36415; 80053; 80061; 83036

== ENCOUNTER 2022-12-20 13:13 | Outpatient (CLI) | payer BC ==
[2022-12-20 14:04] LABS: ALANINE AMINOTRANSFERASE 21 U/L (12-78); ALBUMIN 3.7 G/DL (3.4-5.0); ALBUMIN/GLOBULIN RATIO 1.1 (1.1-1.5); ALKALINE PHOSPHATASE 54 IU/L (46-116); ANION GAP 5 (8-16); ASPARTATE AMINO TRANSFERASE 15 U/L (10-37); BILIRUBIN,TOTAL 0.7 MG/DL (0.1-1.0); BLOOD UREA NITROGEN 12 MG/DL (7-18); BUN/CREATININE RATIO 12.4 (10.0-20.0); CALCIUM 8.4 MG/DL (8.5-10.1); CHLORIDE 107 MMOL/L (99-107); CHOLESTEROL 140 MG/DL (0-200); CREATININE 0.97 MG/DL (0.60-1.10); GLUCOSE 94 MG/DL (70-104); HDL CHOLESTEROL 35 MG/DL (35-60); LDL CHOLESTEROL 101 MG/DL (50-100); SODIUM 142 MMOL/L (135-145); TOTAL CARBON DIOXIDE 29.7 MMOL/L (24-32); TRIGLYCERIDES 77 MG/DL (20-135); eGFR 80 ML/MIN
[2022-12-22 12:59] LABS: % FREE PSA 23.3 % (.); PSA, FREE 0.07 ng/mL
== END 2022-12-20 23:59 | disposition home or self-care (01) ==
LOC: LAB 13:13
PROVIDERS: ATTEND Family Medicine
DX: E78.00 Pure hypercholesterolemia, unspecified (principal); I10 Essential (primary) hypertension; R97.20 Elevated prostate specific antigen [PSA]
CPT/HCPCS: 36415; 80053; 80061; 84153; 84154

== ENCOUNTER 2024-09-18 09:37 | Outpatient (CLI) | payer BC ==
[~2024-09-18 09:37] MED LIST changes: +ALLO300T2 PO; -ALLO300T8 PO; +AMLO10TA13 PO; -AMLO2.5T2 PO; -ASPI-1265 PO; -CARV12.549 PO; +CEPH-585 PO; +FENO145T25 PO; -FENO145T38 PO; -FLEC50TA28 PO; -FLUT16SP11 BOTHNARES; +FURO40TA4 PO; +OLME40TA18 PO; -OLME40TA70 PO; +POTA-207 PO
[2024-09-18 10:27] LABS: ALANINE AMINOTRANSFERASE 22 U/L (12-78); ALBUMIN 3.7 G/DL (3.4-5.0); ALKALINE PHOSPHATASE 58 IU/L (46-116); ANION GAP 4 (8-16); ASPARTATE AMINO TRANSFERASE 10 U/L (10-37); BILIRUBIN,TOTAL 0.7 MG/DL (0.1-1.0); BLOOD UREA NITROGEN 15 MG/DL (7-18); BUN/CREATININE RATIO 15.3 (10.0-20.0); CALCIUM 8.5 MG/DL (8.5-10.1); CHLORIDE 106 MMOL/L (99-107); CHOL/HDL RATIO 3.9 (0.00-4.99); CHOLESTEROL 142 MG/DL (0-200); CREATININE 0.98 MG/DL (0.60-1.10); GLUCOSE 106 MG/DL (70-104); HDL CHOLESTEROL 36 MG/DL (35-60); LDL CHOLESTEROL 94 MG/DL (50-100); SODIUM 141 MMOL/L (135-145); TOTAL CARBON DIOXIDE 30.6 MMOL/L (24-32); TOTAL PROTEIN 7.5 G/DL (6.4-8.2); TRIGLYCERIDES 69 MG/DL (20-135); eGFR 78 ML/MIN
== END 2024-09-18 23:59 | disposition home or self-care (01) ==
LOC: LAB 09:37
PROVIDERS: ATTEND Family Medicine
DX: I10 Essential (primary) hypertension (principal); E78.00 Pure hypercholesterolemia, unspecified
CPT/HCPCS: 36415; 80053; 80061

== ENCOUNTER 2025-01-21 10:31 | Outpatient (CLI) | payer BC ==
--- NOTE | 2025-01-21 19:41 | CARDIOLOGY REPORT ---
APPROVED REPORT EXAM: Comprehensive 2D, Doppler, and color-flow Echocardiogram. Patient Location: OUT-PATIENT Blood Pressure: 150/77 mmHg Heart Rate: 72 bpm Rhythm: Pacemaker Indications AORTIC STENOSIS Pacemaker (01/14) Atrial Fibrillation Hypertension MICROBIOLOGY ANALYST: Silvia Ayala MD Previous ECHO: 01/09/24, BVC, EF: 65; CLAIRE: 1.4; GRAD: 36/21; PKV: 3.01; mMAS -MN GRAD: 5; m-mod MR; mTR/PI 2D Dimensions LA Diam5.4 cm IVSd 1.3 (0.7-1.1cm) LVDd 7.1 cm PWd 1.4 (0.7-1.1cm) IVSs 2.2 (0.8-1.2cm) LVDs 4.1 (2.5-4.0cm) PWs 2.2 (0.8-1.2cm) LVOT Diameter 2.05 (1.8-2.4cm) LVEF(%) 71.5 (>50%) IVC 27.54 mm FS (%) 41.9 % SV 187.0 ml M-Mode Dimensions Left Atrium(MM) 5.35 (2.5-4.0cm) IVSd 1.55 (0.7-1.1cm) LVDd 7.14 (4.0-5.6cm) Aortic Root 3.33 (2.2-3.7cm) PWd 1.55 (0.7-1.1cm) IVSs 2.46 cm MV EPSS 0.7 (<0.5cm) LVDs 3.73 (2.0-3.8cm) FS (%) 48 % PWs 2.50 cm ESV(Teich) 59.1 ml LVEF(%) 78 (>50%) Aortic Valve AoV Peak Jake. 318.3 cm/s AoV VTI 64.8 cm AO Peak GR. 40.5 mmHg AO Mean GR. 25 mmHg LVOT VTI 26.94 cm LVOT Peak Jake. 138.5 cm/s CLAIRE (VMAX) 1.43 cm2 CLAIRE (VTI) 1.37 cm2 Mitral Valve MV E Velocity 151.9 cm/s MV Peak Gr. 10 mmHg MV DECEL TIME 322 ms MV A Velocity 73.0 cm/s MV Mean Gr. 5 mmHg MV PHT 102 ms E/A Ratio 2.1 MVA (PHT) 2.16 cm2 MV [id number] cm/sMVA VTI1.67 cm2 MV VTI53.2 cm TDI E/Medial E' 23.8 Pulmonary Valve PV Peak Velocity 185.8 cm/s PV Peak Grad. 14 mmHg Tricuspid Valve TR P. Velocity 244 cm/s RAP ESTIMATE 10 mmHg TR Peak Gr. 24 mmHg RVSP 34 mmHg LEFT VENTRICLE Normal LV size and wall thickness. Overall systolic function is michelle to hyperdynamic. Overall LVEF i s 70-75%. RIGHT VENTRICLE Right ventricle is mildly dilated with adequate function. ATRIA Left atrium is severely dilated. Pacemaker lead is present in the right heart. AORTIC VALVE Trileaflet AV is moderately stenotic. CLAIRE is measured at 1.37 cmsq. Peak / mean gradients of 40 / 25 mmHG. Peak velocity is measured at 3.18 m/sec. MITRAL VALVE Mild mitral annular calcification with mild stenosis. Peak / mean gradients are 10 / 5 mmHg. Mild reg urgitation. TRICUSPID VALVE The tricuspid valve is normal in structure with trace regurgitation. PULMONIC VALVE The pulmonary valve is normal in structure with physiologic insufficiency. GREAT VESSELS The aortic root is normal in size. The ascending aorta is normal in size. IVC is dilated and collapse s greater than 50% with inspiration. PERICARDIUM Normal pericardium. No effusion. Other Information Study Quality: Adequate Conclusion Overall LVEF is 70-75%. Normal LV size and wall thickness. Overall systolic function is michelle to hyperdynamic. Right ventricle is mildly dilated with adequate function. Trileaflet AV is moderately stenotic. CLAIRE is measured at 1.37 cmsq. Peak / mean gradients of 40 / 2 5 mmHG. Peak velocity is measured at 3.18 m/sec. Mild mitral annular calcification with mild stenosis. Peak / mean gradients are 10 / 5 mmHg. Mild r egurgitation. The tricuspid valve is normal in structure with trace regurgitation. The pulmonary valve is normal in structure with physiologic insufficiency. Normal pericardium. No effusion.
== END 2025-01-21 23:59 | disposition home or self-care (01) ==
LOC: RAD 10:31
PROVIDERS: ATTEND Internal Medicine Cardiovascular Disease
DX: I08.8 Other rheumatic multiple valve diseases (principal); I35.0 Nonrheumatic aortic (valve) stenosis
CPT/HCPCS: 93306

== ENCOUNTER 2025-03-05 11:50 | Outpatient (CLI) | payer BC ==
[2025-03-05 12:25] LABS: CHOL/HDL RATIO 3.8 (0.00-4.99); CREATININE 1.09 MG/DL (0.60-1.10); LDL CHOLESTEROL 105 MG/DL (50-100); TOTAL CARBON DIOXIDE 31.2 MMOL/L (24-32); eGFR 69 ML/MIN
== END 2025-03-05 23:59 | disposition home or self-care (01) ==
LOC: RAD 11:50
PROVIDERS: ATTEND Family Medicine
DX: E78.00 Pure hypercholesterolemia, unspecified (principal)
CPT/HCPCS: 36415; 80053; 80061